=== PATIENT | male | born 1950 | race Hispanic/Latino ===

== ENCOUNTER → 2019-11-05 | Day surgery (SDC) | payer OTHER ==
[2019-11-04 14:02] LABS: BASOPHILS % 0.2 % (0.0-1.0); EOSINOPHILS # (AUTO) 0.1 (0.0-0.4); EOSINOPHILS % 0.8 % (0.0-6.0); HEMATOCRIT 23.3 % (38.2-49.6); HEMOGLOBIN 7.5 g/dL (14.0-18.0); LYMPHOCYTES # (AUTO) 1.4 (1.0-3.2); LYMPHOCYTES % 11.7 % (18.0-39.1); MEAN CORPUSCULAR HEMOGLOBIN 29.3 pg (28-32); MEAN CORPUSCULAR HGB CONC 32.2 g/dL (31-35); MONOCYTES # (AUTO) 0.7 (0.2-0.8); MONOCYTES % 5.6 % (4.4-11.3); NEUTROPHILS # (AUTO) 9.8 (2.1-6.9); NEUTROPHILS % 81.1 % (38.7-80.0); PLATELET COUNT 229 x10e3/uL (140-360); RED BLOOD COUNT 2.56 x10e6/uL (4.3-5.7); RED CELL DISTRIBUTION WIDTH 14.8 % (11.7-14.4)
[~2019-11-05] MED LIST: FENTANYL CITRATE/PF 100MCG/2 ML INJ ONE; LIDOCAINE HCL 2% LOCAL INJ 5 ML SDV VIAL INJ ONE; MIDAZOLAM HCL 2 MG/2 ML VIAL ONE; PANTOPRAZOLE SO40 MG PO; PROPOFOL IV EMULSION 10 MG/ML 50 ML VIAL ONE
[2019-11-05 14:30] VITALS: BP 127/81
[2019-11-05 15:59] LABS: % IRON SATURATION 4 % (15-50); IRON 13 ug/dL (65-175); TOTAL IRON BINDING CAPACITY 353 ug/dL (261-478); TRANSFERRIN 252 mg/dL (174-364)
--- NOTE | 2019-11-05 19:44 | Operative Report ---
DATE OF PROCEDURE: 11/05/2019 SURGEON: Garett Robin MD PROCEDURE: EGD with biopsies. MEDICATIONS: The patient was done under MAC, please see anesthesiologist's note. INDICATION FOR PROCEDURE: History of hematemesis, melena. PROCEDURE IN DETAIL: With the patient in the left lateral decubitus position, a flexible fiberoptic Olympus gastroscope was introduced into the esophagus under direct visualization without any difficulty. There was some prominent esophageal veins noted? grade 1 esophageal varices. There was no active bleeding or stigmata of recent hemorrhage. The scope was then advanced with ease into the stomach. Mucosa overlying the antrum and the body revealed some patchy erythema and [id number] edema, and biopsies were obtained and sent to stain for H. pylori. There were some early portal hypertensive gastropathy changes noted also. There was a somewhat circumferential pyloric channel ulcer without active bleeding. The pylorus was then traversed with ease and the scope was advanced all the way to the second portion of the duodenum. Biopsies were obtained from the proximal second portion and the duodenal bulb to rule out sprue. The scope was then withdrawn back into the stomach and retroflexed, mucosa overlying the fundus and the cardia appeared to be within normal limits. The scope was then straightened out, it was subsequently withdrawn, and the patient tolerated the procedure well. IMPRESSION: 1. ? Grade 1 esophageal varices. 2. Gastritis, biopsied, biopsies sent to stain for Helicobacter pylori. Early changes of portal hypertensive gastropathy noted. 3. Semicircumferential pyloric channel ulcer without active bleeding. 4. Rule out sprue. PLAN: Follow up histology. Initiate Protonix 40 mg 1 p.o. q.a.m. before meals. Check iron level, retic count, and TIBC. Garett Robin MD [facility] [place]/MODL /[id number] cc: Jcarlos Field MD
== END | disposition home or self-care (01) ==
LOC: OR 10:40
PROVIDERS: ATTEND Internal Medicine Gastroenterology
DX: K29.50 Unspecified chronic gastritis without bleeding (principal); B96.81 Helicobacter pylori [H. pylori] as the cause of diseases classified elsewhere; K25.9 Gastric ulcer, unspecified as acute or chronic, without hemorrhage or perforation; K76.6 Portal hypertension; K31.89 Other diseases of stomach and duodenum; R03.0 Elevated blood-pressure reading, without diagnosis of hypertension; Z01.810 Encounter for preprocedural cardiovascular examination; Z01.812 Encounter for preprocedural laboratory examination; Z80.0 Family history of malignant neoplasm of digestive organs
CPT/HCPCS: 36415 ×2; 43239; 83540; 84466; 85025; 85045; 93005; J2001; J2250; J2704; J3010